=== PATIENT | female | born 1955 | race African-American/Black ===

== ENCOUNTER → 2016-03-19 | Outpatient (CLI) | payer BC | LOC: COL.RAD 07:16 | DX: M23.252 Derangement of posterior horn of lateral meniscus due to old tear or injury, left knee (principal); M94.8X6 Other specified disorders of cartilage, lower leg; M25.562 Pain in left knee ==

== ENCOUNTER → 2016-06-19 | Outpatient (CLI) | payer BC | LOC: MC.RAD 15:56 | DX: Z12.31 Encounter for screening mammogram for malignant neoplasm of breast (principal); D24.2 Benign neoplasm of left breast; D24.1 Benign neoplasm of right breast; Z85.3 Personal history of malignant neoplasm of breast ==

== ENCOUNTER → 2017-07-03 | Outpatient (CLI) | payer BC | LOC: MC.RAD 14:58 | DX: Z12.31 Encounter for screening mammogram for malignant neoplasm of breast (principal) ==

== ENCOUNTER 2017-09-04 06:02 | Day surgery (SDC) | payer BC ==
[~2017-09-04] VITALS: Ht 165.1 cm; Wt 79.3 kg
[2017-09-04] MEDS ORDERED: EFFEXOR-XR150 MG PO (06:15)
[2017-09-04] MEDS ORDERED: VASOTEC20 MG PO (06:15)
[2017-09-04 06:16] VITALS: BP 135/96; PULSE 80; TEMP 97
[2017-09-04] MEDS ORDERED: CELEBREX 200MG200 MG PO (06:16)
[2017-09-04 07:40] VITALS: BP 126/85; PULSE 74; TEMP 97.1
[2017-09-04 07:55] VITALS: BP 112/65; PULSE 77
[2017-09-04 08:10] VITALS: BP 113/78; PULSE 72
== END 2017-09-04 08:20 | disposition home or self-care (01) ==
LOC: SDCO 06:02
DX: Z12.11 Encounter for screening for malignant neoplasm of colon (principal); Z86.010 Personal history of colon polyps; D12.3 Benign neoplasm of transverse colon; D12.5 Benign neoplasm of sigmoid colon; K57.30 Diverticulosis of large intestine without perforation or abscess without bleeding; I10 Essential (primary) hypertension; Z92.3 Personal history of irradiation; Z85.3 Personal history of malignant neoplasm of breast
CPT/HCPCS: OP; J2250; J3010; J7030

== ENCOUNTER → 2018-07-05 | Outpatient (CLI) | payer BC ==
[~2018-07-05] MED LIST: CELEBREX 200MG200 MG PO; EFFEXOR-XR150 MG PO; VASOTEC20 MG PO
== END ==
LOC: MC.RAD 14:22
DX: Z12.31 Encounter for screening mammogram for malignant neoplasm of breast (principal); R92.0 Mammographic microcalcification found on diagnostic imaging of breast; Z98.890 Other specified postprocedural states; Z85.3 Personal history of malignant neoplasm of breast

== ENCOUNTER → 2018-07-07 | Outpatient (CLI) | payer BC | LOC: MC.RAD 14:30 | DX: R92.0 Mammographic microcalcification found on diagnostic imaging of breast (principal); Z85.3 Personal history of malignant neoplasm of breast ==

== ENCOUNTER → 2019-01-05 | Outpatient (CLI) | payer BC | LOC: MC.RAD 13:59 | DX: R92.0 Mammographic microcalcification found on diagnostic imaging of breast (principal); R92.8 Other abnormal and inconclusive findings on diagnostic imaging of breast ==

== ENCOUNTER → 2019-07-07 | Outpatient (CLI) | payer BC | LOC: MC.RAD 07:59 | DX: Z12.31 Encounter for screening mammogram for malignant neoplasm of breast (principal) ==

== ENCOUNTER 2021-02-22 08:42 | Day surgery (SDC) | payer BC, MEDICARE ==
[~2021-02-22] VITALS: Ht 165.1 cm; Wt 78.7 kg
[2021-02-22 09:10] VITALS: BP 141/89; PULSE 88; TEMP 97.3
[2021-02-22] MEDS ORDERED: CELEBREX 1100 MG/CAP PO (09:27)
[2021-02-22] MEDS ORDERED: EFFEXOR XR75 MG/CAP PO (09:28)
[2021-02-22 10:35] VITALS: BP 120/80; PULSE 87; TEMP 97.7
--- NOTE | 2021-02-22 10:35 | NUR ---
1035- PATIENT BROUGHT BACK TO [facility] VIA CART. AMBULATED TO CHAIR WITH ASSIST. PLACED ON MONITORS, VITAL SIGNS STABLE. PATIENT DENIES PAIN OR NAUSEA REQUEST TORI. GIANFRANCO RN AT BEDSIDE FOR REPORT. SON AMINA TO DRIVE PATIENT HOME. IV INFUSING. CALL CANDEL[facility]IO WITHIN REACH, WARM BLANKET PROVIDED, WILL MONITOR.
[2021-02-22 10:50] VITALS: BP 114/87; PULSE 80
--- NOTE | 2021-02-22 10:50 | NUR ---
1050- PATIENT TOLERATING FOOD AND DRINK WITHOUT DIFFICULTY. WAITING TO SPEAK WITH DR. ZAMUDIO AT THIS TIME. WILL MONITOR.
[2021-02-22 11:05] VITALS: BP 112/69; PULSE 78
--- NOTE | 2021-02-22 11:05 | NUR ---
DR. ZAMUDIO AT BEDSIDE TO SPEAK WITH PATIENT. PATIENT STATES SHE FEELS READY TO GO HOME AT THIS TIME. SON CALLED, WILL BE THERE IN 20MINUTES. IV REMOVED, INTACT. PATIENT TO GET DRESSED AT THIS TIME. 1110- DISCHARGE INSTRUCTIONS REVIEWED WITH PATIENT. ALL QUESTIONS ANSWERED. AWAITING SONS ARRIVAL.
--- NOTE | 2021-02-22 11:45 | NUR ---
1145Ced SOFIA RN BROUGHT PATIENT DOWN TO LOBBY VIA WHEEL CHAIR. SON AT FRONT OF HOSPITAL TO DRIVE PATIENT HOME. ALL BELONGINGS IN HAND.
== END 2021-02-22 11:25 | disposition home or self-care (01) ==
LOC: SDCO 08:42
DX: Z12.11 Encounter for screening for malignant neoplasm of colon (principal); D12.3 Benign neoplasm of transverse colon; D12.8 Benign neoplasm of rectum; K57.30 Diverticulosis of large intestine without perforation or abscess without bleeding; M19.90 Unspecified osteoarthritis, unspecified site; F32.9 Major depressive disorder, single episode, unspecified; K21.9 Gastro-esophageal reflux disease without esophagitis; I10 Essential (primary) hypertension; Z85.3 Personal history of malignant neoplasm of breast; Z86.010 Personal history of colon polyps
CPT/HCPCS: J2704; J7030

== ENCOUNTER → 2023-02-13 | Outpatient (CLI) | payer BC, MEDICARE ==
[~2023-02-13] MED LIST changes: +CELEBREX 1100 MG/CAP PO; +EFFEXOR XR75 MG/CAP PO
== END ==
LOC: CANSCHCLI → MC.RAD 10:03
DX: Z12.31 Encounter for screening mammogram for malignant neoplasm of breast (principal)